=== PATIENT | male | born 1960 | race Caucasian/White ===

== ENCOUNTER 2024-06-25 17:28 | Emergency (ER) | payer OTHER ==
[~2024-06-25] VITALS: Ht 175.3 cm; Wt 63.5 kg
[2024-06-25] MEDS ORDERED: TRAZ-182 PO (17:39)
[2024-06-25] MEDS ORDERED: QUET25TA PO (17:39)
[2024-06-25] MEDS ORDERED: HALOPERIDOL LACTATE 5 MG/1 ML VIAL ONE (17:54)
[2024-06-25] MEDS ORDERED: diphenhydrAMINE 50 MG/1 ML VIAL ONE (17:54)
[2024-06-25] MEDS ORDERED: LORAZEPAM 2 MG/1 ML VIAL ONE (17:55)
[2024-06-25] MEDS: diphenhydrAMINE 50 MG/1 ML VIAL IM ONE (18:00)
[2024-06-25] MEDS: HALOPERIDOL LACTATE 5 MG/1 ML VIAL IM ONE (18:00)
[2024-06-25] MEDS: LORAZEPAM 2 MG/1 ML VIAL IM ONE (18:00)
[2024-06-25 18:03] LABS: BASOPHILS # (AUTO) 0.1 K/UL (0.0-0.2); BASOPHILS % (AUTO) 0.7 % (0.0-2.0); EOSINOPHILS # (AUTO) 0.1 K/uL (0.0-0.7); EOSINOPHILS % (AUTO) 0.8 % (0.0-7.0); HEMATOCRIT 38.7 % (36.7-47.1); HEMOGLOBIN 12.9 g/dL (12.5-16.3); LYMPHOCYTES # (AUTO) 1.1 K/uL (0.8-4.8); LYMPHOCYTES % (AUTO) 13.9 % (20.5-51.5); MEAN CORPUSCULAR HEMOGLOBIN 30.2 uug (23.8-33.4); MEAN CORPUSCULAR HGB CONC 33 g/dL (32.5-36.3); MEAN CORPUSCULAR VOLUME 90.3 fL (73.0-96.2); MONOCYTES # (AUTO) 0.8 K/uL (0.1-1.30); MONOCYTES % (AUTO) 9.5 % (0.0-11.0); NEUTROPHILS % (AUTO) 75.1 % (38.5-71.5); PLATELET COUNT (AUTO) 201 K/uL (152-348); RED BLOOD CELL COUNT(AUTO) 4.28 MIL/uL (4.06-5.63); RED CELL DISTRIBUTION WIDTH 13.5 % (12.1-16.2); WHITE BLOOD COUNT (AUTO) 7.9 K/uL (3.6-10.2)
[2024-06-25 18:14] LABS: CALCIUM 9.4 mg/dL (8.5-10.1); CARBON DIOXIDE 27 mmol/L (21-32); CHLORIDE 106 mmol/L (98-107); GLUCOSE 168 mg/dL (74-106); POTASSIUM 3.5 mmol/L (3.5-5.1); SODIUM SERUM 143 mmol/L (136-145); UREA NITROGEN, BLOOD 13 mg/dL (7-18)
[2024-06-25 18:17] LABS: ETHANOL < 3 MG/DL (0-10)
[2024-06-25 18:28] LABS: ALANINE AMINOTRANSFERASE 11 U/L (16-63); ALBUMIN 3.6 g/dL (3.4-5.0); ALKALINE PHOSPHATASE 103 U/L (50-136); ASPARTATE AMINOTRANSFERASE 14 U/L (15-37); BILIRUBIN,DIRECT 0.1 mg/dL (0.0-0.2); BILIRUBIN,TOTAL 0.4 mg/dL (0.2-1.0); NT-PRO BNP 275 pg/mL (0-125); TOTAL PROTEIN, SERUM 7.2 g/dL (6.4-8.2)
[2024-06-25 18:29] LABS: ACETAMINOPHEN < 2.0 ug/mL (10-30)
[2024-06-25 18:40] VITALS: O2SAT 98
== END 2024-06-25 19:47 | disposition left against medical advice (07) ==
LOC: ER 17:50
DX: F20.9 Schizophrenia, unspecified (principal); J45.909 Unspecified asthma, uncomplicated; R00.0 Tachycardia, unspecified; R07.9 Chest pain, unspecified; F29 Unspecified psychosis not due to a substance or known physiological condition; Z86.73 Personal history of transient ischemic attack (TIA), and cerebral infarction without residual deficits
CPT/HCPCS: 80076; 80048; 83880; 85025; 85730; 84484; 36415; 93005; 99284; 96372 ×2; 80299; 80320; 80307; J1200; J1630; J2060; A4606; A4663; G0480